=== PATIENT | female | born 1940 | race African-American/Black ===

== ENCOUNTER 2016-07-03 15:14 | Inpatient (IN) | payer OTHER ==
--- NOTE | ~2016-07-03 | HP ---
History And Physical [facility] [address] [place]. [address] NAME: YEHUDA JACOBO : 38 STATUS : ADM Sidney PAT#: [id number] AGE: 76 ADM/REG DATE : 07/03/16 MR#: [id number] REPORT SERV DATE: 07/04/16 DICTATED BY: JUAN JOSE CHUNG DATE: 07/03/16 REPORT STATUS : Draft TRANSCRIBED BY: MODL DATE: 07/03/16 DATE OF ADMISSION: 07/03/2016 CHIEF COMPLAINT: Right-sided chest pain and shortness of breath. HISTORY OF PRESENT ILLNESS: This is a 76-year-old female with a history of hypertension who presents to the emergency room at [facility] with the above-mentioned complaint. History is obtained from the patient and her brother, who is at bedside, along with reviewing data available on the [employer] system here. According to available data, Ms Jacobo, has been having progressive dyspnea and generalized weakness for about a week now. However, in the last two days or so, she has developed intense right-sided chest pain which is pleuritic in nature, aggravated with deep inspiration or coughing. This continued to the point where she had pain at rest even. She has also developed nonproductive cough without any hemoptysis in the last two days. They finally decided to come to the emergency room to be evaluated. According to the brother, she stays mostly in bed almost all day and just does not want to get around. They had one trip recently about a week or 10 days ago when they went to [facility]. Since her return, she has continued to stay in bed for no apparent reason. Unfortunately, she continues to smoke as well. In the emergency room, initial workup revealed a chest x-ray showing a right lower lobe atelectasis with mild leukocytosis. EKG showed sinus tachycardia and CTA of the chest was ordered. The CTA showed extensive bilateral pulmonary emboli and Hospitalist Service is asked to admit her for further evaluation and treatment. At the time of my evaluation, she has continued to have this pleuritic chest pain. She was otherwise in no distress. She denied palpitations or orthopnea. She did have a cough which was nonproductive, not associated with hemoptysis, night sweats, or weight loss. She has not had any recent falls or loss of consciousness. No history of recent fevers, chills, nausea, vomiting, diarrhea, or dysuria. No history of any recent hematemesis, hematochezia, or hematuria. No other history of recent travel or exposures. She has not had any stroke- like symptoms in the last five years. She has not had any GI bleeds recently. SOCIAL HISTORY: She has more than 50-pack year history of smoking, continues to do so. She takes an occasional alcoholic drink. She denies any recreational drug use. She used to be a social media community manager by profession. FAMILY HISTORY: Noncontributory. MEDICATIONS: At home were reviewed by me in the chart today and reordered by me. REVIEW OF SYSTEMS: As in history of present illness. All others systems were reviewed in detail and are quite unremarkable. History And Physical [address] [address] NAME: YEHUDA JACOBO : 39 STATUS : ADM Sidney PAT#: [id number] AGE: 76 ADM/REG DATE : 07/03/16 MR#: [id number] REPORT SERV DATE: 07/04/16 DICTATED BY: JUAN JOSE CHUNG DATE: 07/03/16 REPORT STATUS : Draft TRANSCRIBED BY: IKER DATE: 07/03/16 PHYSICAL EXAMINATION: GENERAL: This is a pleasant 76-year-old, not in any acute distress. HEENT: Her head is atraumatic, normocephalic. She is alert, awake, and oriented to time, place, and person. Her pupils are equal, reacting to light and accommodating. External ocular muscles are intact. Membranes are moist and pink. Sclerae are nonicteric. NECK: Supple with no jugular venous distention, lymphadenopathy, or thyromegaly. LUNGS: Auscultation of her lungs revealed decreased air entry bilaterally, but without any expiratory wheezes or rales. HEART: Auscultation of her heart revealed normal rate and rhythm with no murmurs, rubs, or gallops appreciated. ABDOMEN: Soft, nontender. Bowel sounds are present. EXTREMITIES: Showed no cyanosis, clubbing, or edema. NEUROLOGIC: Grossly intact. No focal sensory or motor deficits. Higher functions appeared intact. Gait was not examined. VITAL SIGNS: Her temperature today was 97 degrees Fahrenheit, heart rate was 122 upon arrival, respirations were 24, and blood pressure upon arrival was 101/63. At the time of my exam, it was 130/66. Oxygen saturations were 93% on 3 L upon arrival here. LABORATORY DATA: Reviewed on the [employer] system showed a normal CMP with a blood glucose of 124. Troponin was 0.02. Lactate was 0.9. CBC showed a white blood cell count of 12,400, hemoglobin was 14.8, hematocrit 43, and platelet count was 230,000. Her prothrombin time was 15.2 with an INR of 1.2 today. Influenza A and B were negative. Films of the CTA of the chest were reviewed by me on the PACS today and interpreted by me. Per my interpretation, there is acute extensive bilateral pulmonary emboli with right-sided pulmonary infarction as well. A 12-lead EKG done in the emergency room was reviewed and interpreted by me. There is sinus tachycardia. IMPRESSION: 1. Right-sided chest pain. 2. Acute pulmonary embolism. 3. Essential hypertension. 4. Sinus tachycardia. 5. Tobacco use. PLAN: 1. We will admit Ms Jacobo to the Hospitalist Service with telemetry for a 24-hour observation period. We will start her on Lovenox subcutaneously 1 mg/kg dose and transition to oral therapy in the morning. Meanwhile, we will keep her in bedrest and start her on pain control as well. We will maximize her bronchodilator treatments, continue supplemental oxygen therapy at this time. 2. We will also start her on IV fluids for volume resuscitation. Check chemistry and CBC in the morning. We will also obtain cultures and start her on empiric IV antibiotics for now. Check her lactate and procalcitonin levels, and if negative, we will consider discontinuing the antibiotics. We will continue all other home medications and History And Physical [address] [address] NAME: YEHUDA JACOBO : 38 STATUS : ADM Sidney PAT#: [id number] AGE: 76 ADM/REG DATE : 07/03/16 MR#: [id number] REPORT SERV DATE: 07/04/16 DICTATED BY: JUAN JOSE CHUNG DATE: 07/03/16 REPORT STATUS : Draft TRANSCRIBED BY: MODL DATE: 04/19/17 treatments at this time as well. I have discussed the above plans with the patient and her brother questions were answered. They are agreeable to the above recommendations. 3. Hospitalist Service will be following her during her stay here. /IKER Juan Jose Chung M.D. / [id number] CC: Ramírez Sargent Jr, MD Oana L. Andreescu, M.D.
--- NOTE | ~2016-07-03 | DS ---
Discharge Summary [facility] [id number] [place]. [address] NAME: YEHUDA JACOBO : 39 STATUS : DIS IN PAT#: [id number] AGE: 76 ADM/REG DATE : 07/03/16 MR#: [id number] REPORT SERV DATE: 07/13/16 DICTATED BY: ALEX ENCISO DATE: 07/12/16 REPORT STATUS : Draft TRANSCRIBED BY: MODL DATE: 07/12/16 ADMISSION DATE: 07/03/2016 DISCHARGE DATE: 07/12/2016 This dictation is an addition to discharge summary dictated by me on 07/11/2016. The patient was scheduled to be discharged on 07/10/2016; however, Insurance approval could not be obtained for the patient to be discharged to rehab facility as recommended by Physical Therapy. Insurance approval has been approved, bed is available for the patient in [facility]. The patient will therefore be discharged today. All other information on discharge summary remains the same. AKOSUA/IKER Alex Enciso MD / [id number] CC: MD Mellissa Austin M.D.
--- NOTE | ~2016-07-03 | DS ---
Discharge Summary [facility] [address] [place]. [address] NAME: YEHUDA JACOBO : 38 STATUS : ADM IN [facility]#: [id number] AGE: 76 ADM/REG DATE : 07/03/16 MR#: [id number] REPORT SERV DATE: 07/11/16 DICTATED BY: ALEX ENCISO DATE: 07/10/16 REPORT STATUS : Draft TRANSCRIBED BY: MODL DATE: 07/10/16 ADMISSION DATE: 07/03/2016 DISCHARGE DATE: ADDENDUM: This dictation is in addition to interim discharge summary dictated by Dr. Estrella on 07/09/2016. I assumed care of the patient 07/09/2016. At the time of my assumption of care, the patient was hemodynamically stable but still had some mild increased work of breathing. The patient was monitored again in the hospital setting, she has remained hemodynamically stable. BENNETT was ordered to evaluate the effect of PE on her cardiovascular function. BENNETT came back normal. The patient has remained hemodynamically stable. The patient also has been observed off oxygen, and the patient is saturating appropriately with no increased work of breathing. Given her hemodynamic stability, the patient will be discharged home to follow up with her primary care physician in five to seven days. Plan has been discussed with the patient who voices understanding and is agreeable with this plan. DISCHARGE DIAGNOSES: 1. Acute hypoxic respiratory failure. 2. Bilateral pulmonary embolism. 3. Hypertension. 4. Tobacco abuse. DISCHARGE EXAM: VITAL SIGNS: Blood pressure 131/60 with a pulse of 93, respirations 18, O2 saturation 94% on room air. GENERAL: The patient lying in bed, appears stated age, in no acute distress. HEENT: Normocephalic, atraumatic. Extraocular motors intact. Moist oral mucosa. Pupils are round and reactive to light and accommodation. NECK: Trachea midline and symmetric. No JVD noted. No thyromegaly present. LUNGS: Clear to auscultation bilaterally. No added breath sounds. CHEST: Nontender to palpation. CARDIOVASCULAR: Regular rate and rhythm, S1, S2. No murmurs, rubs, or gallops. ABDOMEN: Positive bowel sounds. Nontender. Nondistended. No organomegaly noted. No masses palpated. EXTREMITIES: No cyanosis, no clubbing, no edema. NEUROLOGIC: Alert and oriented x3. No focal deficits appreciated. DISCHARGE MEDICATIONS: 1. Lotensin HCT 12/26.5 one tab p.o. daily. 2. Gabapentin 300 mg p.o. at bedtime. 3. Hydrochlorothiazide 25 mg p.o. daily. 4. Nicotine transdermal patch 21 mg topically daily. 5. Xarelto 15 mg p.o. daily p.o. twice a day. 6. Colcrys 0.6 mg p.o. daily. IMAGING: CT brain without contrast impression: Discharge Summary [address] [place]. [address] NAME: YEHUDA JACOBO : 39 STATUS : ADM IN PAT#: [id number] AGE: 76 ADM/REG DATE : 07/03/16 MR#: [id number] REPORT SERV DATE: 07/11/16 DICTATED BY: ALEX ENCISO DATE: 07/10/16 REPORT STATUS : Draft TRANSCRIBED BY: IKER DATE: 07/10/16 1. No acute infarct or hemorrhage. 2. Moderate atrophy and chronic white matter gliosis. CT/CTA chest impression: Moderate heavy burden, bilateral multifocal incompletely obstructing lobar and subsegmental pulmonary artery pulmonary embolism in the bilateral upper and lower lobes most extensive in the right middle lobe and right lower lobe. For further details, please refer to the CTA on 07/03/2016. Transthoracic echo summary; normal left ventricular size and systolic function. Estimated ejection fraction 60%. Mild concentric LVH. Mild diastolic dysfunction. No regional wall motion abnormalities are identified. Normal right ventricular size and systolic function. Normal left atrial size. Aortic valve sclerosis without stenosis. DISPOSITION: The patient will be discharged home. FOLLOWUP: Follow up with primary care physician in five to ten days. ACTIVITY: As tolerated. PATIENT EDUCATION: The patient has been counseled against tobacco use. The patient is agreeable and given her willingness to quit smoking, transdermal patch was ordered. Activity as tolerated. DIET: Regular. Greater than 30 minutes was spent coordinating discharge, dictation of note, medication reconciliation, and providing counseling. LILIYA Alex Enciso MD / [id number] CC: MD Mellissa Austin M.D.
--- NOTE | ~2016-07-03 | IDS ---
Interim Discharge Summary [facility] [address] [place]. [address] NAME: YEHUDA JACOBO : 38 STATUS : ADM IN [facility]#: [id number] AGE: 76 ADM/REG DATE : 07/03/16 MR#: [id number] REPORT SERV DATE: 07/09/16 DICTATED BY: WILFRIDO HATCH DATE: 07/08/16 REPORT STATUS : Draft TRANSCRIBED BY: MODSukdheep DATE: 07/08/16 ADMISSION DATE: 07/03/2016 DISCHARGE DATE: DATE OF INTERIM DISCHARGE: 07/08/2016. PROCEDURES DONE: 1. 07/03/2016, chest x-ray: Right basilar linear opacity suggesting atelectasis, possibly due to poor inspiratory effort. 2. 07/03/2016, CT angiogram of chest: Moderate heavy burden of bilateral multifocal incompletely obstructing lobar and segmental pulmonary emboli, in the bilateral upper and lower lobes, most extensive in the right middle lobe and right lower lobe. Infiltrate, right middle lobe, may represent atelectasis or sequelae of pulmonary infarct. Subsegmental atelectasis, posterior right lung base. Cardiomegaly and moderate dense coronary artery calcifications. Enlarged main pulmonary artery measuring 3.2 diameter, consistent with CT evidence of pulmonary arterial hypertension. 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 Old calcified granulomatous disease. 3. 07/07/2016, CT of the head without contrast: No acute infarct or hemorrhage. Moderate atrophy and chronic white matter gliosis. REASON FOR ADMISSION: Right-sided chest pain and shortness of breath. HISTORY OF HOSPITAL STAY: A 76-year-old black female, past medical history of hypertension, presented with right-sided pain and shortness of breath. The patient had a CT angiogram of the chest at the time of presentation. The patient ended up having a right middle lobe pneumonia in conjunction with moderately heavy pulmonary embolus on the bilateral upper lobe and lower lobe with extensive PE in the right middle lobe and lower lobe. The patient was started on Xarelto. The patient initially was started on Lovenox for anticoagulation, but subsequently been switched to Xarelto. Unfortunately, the patient is also being treated for pneumonia. The patient had pretty high requirement of oxygen at the time of presentation. The patient was requiring 6 L of oxygen, but had subsequently been trending down to 3 L. More importantly, we will have PT evaluation to determine if the patient can be mobilized and hopefully wean down the oxygen. Questionable if the patient will need rehab versus home health with rehab. DIAGNOSES ON DISCHARGE: 1. Right-sided chest pain secondary to pulmonary embolism versus pneumonia. Continue the patient on Rocephin and Zithromax for pneumonia. In addition, continue the patient's Xarelto for anticoagulation. 2. Bilateral upper lobe and lower lobe pulmonary embolism with extensive pulmonary embolism in the right middle lobe and lower lobe. Continue Xarelto. This will make compliance much easier for the patient. The patient has been agreeable to afford the medication. With the patient's current insurance, the patient will have a cost of 42 dollars per month. 3. Hypertension. Continue the benazepril. Interim Discharge Summary [address] [address] NAME: YEHUDA JACOBO : 38 STATUS : ADM IN [facility]#: [id number] AGE: 76 ADM/REG DATE : 07/03/16 MR#: [id number] REPORT SERV DATE: 07/09/16 DICTATED BY: WILFRIDO HATCH. DATE: 07/08/16 REPORT STATUS : Draft TRANSCRIBED BY: IKER DATE: 07/08/16 4. Tobacco abuse. The patient has been doing well with nicotine patch. Recommend to encourage the patient using nicotine for smoking cessation. 5. Right middle lobe pneumonia. Continue the patient on Rocephin and Zithromax. FBDarling/MODL Wilfrido Hatch MD / [id number] CC: MD Mellissa Leon M.D.
[2016-07-03 15:04] LABS: BASOPHILS 0.2 %; BASOPHILS ABSOLUTE 0.02 10/3/uL (0.0-0.16); EOSINOPHILS 0 %; HEMOGLOBIN 14.8 g/dL (12.0-16.0); IMMATURE GRANULOCYTES 0.3 %; IMMATURE GRANULOCYTES ABSOLUTE 0.04 10/3/uL (0.0-0.11); LYMPHOCYTES 11.9 %; LYMPHOCYTES ABSOLUTE 1.48 10/3/uL (0.67-4.30); MEAN CORPUSCULAR HEMOGLOB 30.6 pg (26.0-34.0); MEAN PLATELET VOLUME 9.6 fL (9.2-13.0); MONOCYTES 13.2 %; MONOCYTES ABSOLUTE 1.64 10/3/uL (0.21-1.20); NEUTROPHILS 74.4 %; NEUTROPHILS ABSOLUTE 9.23 10/3/uL (2.02-8.40); RBC DISTRIBUTION WIDTH 16.3 % (12.0-16.0); RED CELL COUNT 4.83 10/6/uL (4.0-5.6)
[2016-07-03 15:07] LABS: MANUAL DIFF NO %; MEAN CORPUS HGB CONC 34.4 g/dL (32.0-36.0); PLATELET COUNT 230 10/3/uL (150-400); WHITE BLOOD CELLS 12.4 10/3/uL (4.5-10.5)
[2016-07-03 15:16] LABS: INTERNATIONAL NORMAL RATI 1.2 UNITS (-); PROTIME (NOT ORD) 15.2 SEC (12.0-14.5)
[2016-07-03 15:17] LABS: PARTIAL THROMBO TIME 32.7 SEC (22.5-37.2)
[2016-07-03 15:23] LABS: BUN (BLOOD UREA NITROGEN) 18 MG/DL (6-23); CALCIUM, SERUM 10.7 MG/DL (8.5-10.4); CHEST PAIN PROFILE TAT 0 Hrs 22 Mins; CHLORIDE, SERUM 101 MMOL/L (96-112); CO2 (CARBON DIOXIDE) 23 MMOL/L (24-34); CREATININE 1.01 MG/DL (0.55-1.02); GFR AFRICAN AMERICAN 62 ML/MIN (>=60); GFR NON AFRICAN AMERICAN 54 ML/MIN (>=60); GLUCOSE, SERUM 124 MG/DL (60-99); POTASSIUM, SERUM 3.6 MMOL/L (3.5-5.3); SODIUM, SERUM 135 MMOL/L (135-148); TROPONIN I <0.02 NG/ML (<0.05)
[2016-07-03 17:17] LABS: INFLUENZA A SCREEN NEGATIVE (NEGATIVE); INFLUENZA B SCREEN NEGATIVE (NEGATIVE)
[2016-07-03] MEDS ORDERED: COLCRYS0.6 MG PO (18:07)
[2016-07-03] MEDS ORDERED: HYDROCHLOROT25 MG PO (18:08)
[2016-07-03] MEDS ORDERED: NEUR300 PO (18:08)
[2016-07-03] MEDS ORDERED: LOTENSIN HCT1 TA1 PO (18:08)
[2016-07-04 06:02] LABS: BASOPHILS 0.1 %; BASOPHILS ABSOLUTE 0.01 10/3/uL (0.0-0.16); EOSINOPHILS 0 %; HEMATOCRIT 41.7 % (36.0-48.0); HEMOGLOBIN 14.1 g/dL (12.0-16.0); IMMATURE GRANULOCYTES 0.3 %; IMMATURE GRANULOCYTES ABSOLUTE 0.04 10/3/uL (0.0-0.11); LYMPHOCYTES 10.9 %; LYMPHOCYTES ABSOLUTE 1.44 10/3/uL (0.67-4.30); MEAN CORPUS HGB CONC 33.8 g/dL (32.0-36.0); MEAN CORPUSCULAR HEMOGLOB 30.7 pg (26.0-34.0); MEAN CORPUSCULAR VOLUME 90.7 fL (80-100); MEAN PLATELET VOLUME 9.7 fL (9.2-13.0); MONOCYTES 10.9 %; MONOCYTES ABSOLUTE 1.44 10/3/uL (0.21-1.20); NEUTROPHILS 77.8 %; NEUTROPHILS ABSOLUTE 10.24 10/3/uL (2.02-8.40); PLATELET COUNT 227 10/3/uL (150-400); RBC DISTRIBUTION WIDTH 16.2 % (12.0-16.0); WHITE BLOOD CELLS 13.2 10/3/uL (4.5-10.5)
[2016-07-04 06:12] LABS: MANUAL DIFF NO %
[2016-07-04 06:14] LABS: BUN (BLOOD UREA NITROGEN) 19 MG/DL (6-23); CALCIUM, SERUM 9.9 MG/DL (8.5-10.4); CHLORIDE, SERUM 102 MMOL/L (96-112); CO2 (CARBON DIOXIDE) 23 MMOL/L (24-34); CREATININE 1.09 MG/DL (0.55-1.02); GFR AFRICAN AMERICAN 57 ML/MIN (>=60); GFR NON AFRICAN AMERICAN 49 ML/MIN (>=60); GLUCOSE, SERUM 121 MG/DL (60-99); PHOSPHORUS, SERUM 3.2 MG/DL (2.5-4.5); POTASSIUM, SERUM 4.2 MMOL/L (3.5-5.3); SODIUM, SERUM 136 MMOL/L (135-148)
[2016-07-05 03:26] LABS: BASOPHILS 0.1 %; BASOPHILS ABSOLUTE 0.01 10/3/uL (0.0-0.16); EOSINOPHILS 0.2 %; EOSINOPHILS ABSOLUTE 0.03 10/3/uL (0.0-0.53); HEMATOCRIT 39.9 % (36.0-48.0); HEMOGLOBIN 13.4 g/dL (12.0-16.0); IMMATURE GRANULOCYTES 0.3 %; IMMATURE GRANULOCYTES ABSOLUTE 0.04 10/3/uL (0.0-0.11); LYMPHOCYTES 12.2 %; LYMPHOCYTES ABSOLUTE 1.62 10/3/uL (0.67-4.30); MEAN CORPUS HGB CONC 33.6 g/dL (32.0-36.0); MEAN CORPUSCULAR VOLUME 92.4 fL (80-100); MEAN PLATELET VOLUME 10.1 fL (9.2-13.0); MONOCYTES 12.5 %; MONOCYTES ABSOLUTE 1.65 10/3/uL (0.21-1.20); NEUTROPHILS 74.7 %; NEUTROPHILS ABSOLUTE 9.88 10/3/uL (2.02-8.40); PLATELET COUNT 215 10/3/uL (150-400); RBC DISTRIBUTION WIDTH 16.2 % (12.0-16.0); RED CELL COUNT 4.32 10/6/uL (4.0-5.6); WHITE BLOOD CELLS 13.2 10/3/uL (4.5-10.5)
[2016-07-05 03:27] LABS: MANUAL DIFF NO %
[2016-07-05 03:44] LABS: A/G RATIO 0.5 (0.7-1.9); ALBUMIN 2.5 G/DL (3.5-5.0); ALKALINE PHOSPHATASE 71 U/L (45-117); BUN (BLOOD UREA NITROGEN) 23 MG/DL (6-23); CALCIUM, SERUM 8.7 MG/DL (8.5-10.4); CHLORIDE, SERUM 103 MMOL/L (96-112); CO2 (CARBON DIOXIDE) 24 MMOL/L (24-34); CREATININE 1.11 MG/DL (0.55-1.02); GFR AFRICAN AMERICAN 55 ML/MIN (>=60); GFR NON AFRICAN AMERICAN 48 ML/MIN (>=60); GLOBULIN 4.6 G/DL (2.5-4.1); GLUCOSE, SERUM 101 MG/DL (60-99); PHOSPHORUS, SERUM 2.8 MG/DL (2.5-4.5); SGOT(AST) 14 U/L (5-40); SGPT(ALT) 11 U/L (5-65); SODIUM, SERUM 139 MMOL/L (135-148); TOTAL BILIRUBIN 0.3 MG/DL (0-1.2); TOTAL PROTEIN 7.1 G/DL (6.0-8.5); TROPONIN I <0.02 NG/ML (<0.05)
[2016-07-06 04:36] LABS: A/G RATIO 0.5 (0.7-1.9); ALBUMIN 2.5 G/DL (3.5-5.0); ALKALINE PHOSPHATASE 80 U/L (45-117); BUN (BLOOD UREA NITROGEN) 25 MG/DL (6-23); CALCIUM, SERUM 9.6 MG/DL (8.5-10.4); CHLORIDE, SERUM 99 MMOL/L (96-112); CREATININE 1.09 MG/DL (0.55-1.02); GFR AFRICAN AMERICAN 57 ML/MIN (>=60); GFR NON AFRICAN AMERICAN 49 ML/MIN (>=60); PHOSPHORUS, SERUM 3.2 MG/DL (2.5-4.5); POTASSIUM, SERUM 3.7 MMOL/L (3.5-5.3); SGOT(AST) 18 U/L (5-40); SGPT(ALT) 16 U/L (5-65); SODIUM, SERUM 137 MMOL/L (135-148); TOTAL BILIRUBIN 0.5 MG/DL (0-1.2); TOTAL PROTEIN 7.5 G/DL (6.0-8.5)
[2016-07-06 04:42] LABS: CO2 (CARBON DIOXIDE) 29 MMOL/L (24-34); GLUCOSE, SERUM 139 MG/DL (60-99)
[2016-07-06 04:49] LABS: BASOPHILS 0.1 %; BASOPHILS ABSOLUTE 0.01 10/3/uL (0.0-0.16); EOSINOPHILS 0 %; HEMATOCRIT 42.4 % (36.0-48.0); HEMOGLOBIN 14.4 g/dL (12.0-16.0); IMMATURE GRANULOCYTES 0.3 %; IMMATURE GRANULOCYTES ABSOLUTE 0.03 10/3/uL (0.0-0.11); LYMPHOCYTES 6.8 %; LYMPHOCYTES ABSOLUTE 0.69 10/3/uL (0.67-4.30); MANUAL DIFF NO %; MEAN CORPUSCULAR HEMOGLOB 30.8 pg (26.0-34.0); MEAN CORPUSCULAR VOLUME 90.6 fL (80-100); MEAN PLATELET VOLUME 10.6 fL (9.2-13.0); MONOCYTES 7.7 %; MONOCYTES ABSOLUTE 0.78 10/3/uL (0.21-1.20); NEUTROPHILS 85.1 %; NEUTROPHILS ABSOLUTE 8.61 10/3/uL (2.02-8.40); PLATELET COUNT 333 10/3/uL (150-400); RBC DISTRIBUTION WIDTH 16.2 % (12.0-16.0); RED CELL COUNT 4.68 10/6/uL (4.0-5.6); WHITE BLOOD CELLS 10.1 10/3/uL (4.5-10.5)
[2016-07-06 20:52] LABS: ALLENS TEST Pos; CARBOXYHEMOGLOBIN 0.2 % (0-3); DEVICE NC; HCO3 (ACTUAL BICARBONATE) 33.8 MEQ/L (23-27); HEMOBLOGIN CONTENT 14.5 G/DL (12-16); INSTRUMENT SERIAL # 35151; METHEMOGLOBIN 0.6 % (0-3); O2 CONTENT 19.2 VOL% (18-24); OPERATOR ID 17370; PCO2 (CO2 TENSION) 42 MMHG (35-45); PO2 (O2 TENSION) 75 MMHG (79-93); SAMPLE Arterial; pH 7.52 (7.37-7.43)
[2016-07-07 06:18] LABS: BASOPHILS 0.1 %; BASOPHILS ABSOLUTE 0.01 10/3/uL (0.0-0.16); EOSINOPHILS 0.5 %; EOSINOPHILS ABSOLUTE 0.04 10/3/uL (0.0-0.53); HEMOGLOBIN 12.7 g/dL (12.0-16.0); IMMATURE GRANULOCYTES 0.2 %; IMMATURE GRANULOCYTES ABSOLUTE 0.02 10/3/uL (0.0-0.11); LYMPHOCYTES ABSOLUTE 1.19 10/3/uL (0.67-4.30); MEAN CORPUS HGB CONC 34.2 g/dL (32.0-36.0); MEAN CORPUSCULAR HEMOGLOB 30.7 pg (26.0-34.0); MEAN CORPUSCULAR VOLUME 89.6 fL (80-100); MEAN PLATELET VOLUME 9.8 fL (9.2-13.0); MONOCYTES 13.3 %; MONOCYTES ABSOLUTE 1.13 10/3/uL (0.21-1.20); NEUTROPHILS 71.9 %; NEUTROPHILS ABSOLUTE 6.11 10/3/uL (2.02-8.40); PLATELET COUNT 339 10/3/uL (150-400); RBC DISTRIBUTION WIDTH 16.3 % (12.0-16.0); RED CELL COUNT 4.14 10/6/uL (4.0-5.6); WHITE BLOOD CELLS 8.5 10/3/uL (4.5-10.5)
[2016-07-07 06:19] LABS: HEMATOCRIT 37.1 % (36.0-48.0); MANUAL DIFF NO %
[2016-07-07 06:33] LABS: ALBUMIN 2.3 G/DL (3.5-5.0); BUN (BLOOD UREA NITROGEN) 26 MG/DL (6-23); CALCIUM, SERUM 9.5 MG/DL (8.5-10.4); CHLORIDE, SERUM 99 MMOL/L (96-112); CO2 (CARBON DIOXIDE) 27 MMOL/L (24-34); CREATININE 1.02 MG/DL (0.55-1.02); GFR AFRICAN AMERICAN 61 ML/MIN (>=60); GFR NON AFRICAN AMERICAN 53 ML/MIN (>=60); GLUCOSE, SERUM 117 MG/DL (60-99); PHOSPHORUS, SERUM 2.5 MG/DL (2.5-4.5); POTASSIUM, SERUM 3.3 MMOL/L (3.5-5.3); SODIUM, SERUM 136 MMOL/L (135-148)
[2016-07-07 06:38] LABS: ASCORBIC ACID (UR NOT ORDER) NEG (NEG); BILIRUBIN, URINE NEGATIVE (NEG); KETONE, URINE NEGATIVE (NEG); LEUKOCYTE ESTERASE(NOT OR NEG (NEG); WBC (NOT ORDERED) (RFLEX) 1 (0-5)
[2016-07-08 06:57] LABS: BASOPHILS 0.3 %; BASOPHILS ABSOLUTE 0.02 10/3/uL (0.0-0.16); EOSINOPHILS 1.9 %; EOSINOPHILS ABSOLUTE 0.15 10/3/uL (0.0-0.53); HEMATOCRIT 36.8 % (36.0-48.0); HEMOGLOBIN 12.1 g/dL (12.0-16.0); IMMATURE GRANULOCYTES 0.4 %; IMMATURE GRANULOCYTES ABSOLUTE 0.03 10/3/uL (0.0-0.11); LYMPHOCYTES 22.3 %; LYMPHOCYTES ABSOLUTE 1.73 10/3/uL (0.67-4.30); MEAN CORPUS HGB CONC 32.9 g/dL (32.0-36.0); MEAN CORPUSCULAR HEMOGLOB 30.2 pg (26.0-34.0); MEAN CORPUSCULAR VOLUME 91.8 fL (80-100); MEAN PLATELET VOLUME 9.7 fL (9.2-13.0); MONOCYTES 9.3 %; MONOCYTES ABSOLUTE 0.72 10/3/uL (0.21-1.20); NEUTROPHILS 65.8 %; PLATELET COUNT 342 10/3/uL (150-400); RBC DISTRIBUTION WIDTH 15.9 % (12.0-16.0); RED CELL COUNT 4.01 10/6/uL (4.0-5.6); WHITE BLOOD CELLS 7.8 10/3/uL (4.5-10.5)
[2016-07-08 06:58] LABS: MANUAL DIFF NO %
[2016-07-08 07:12] LABS: A/G RATIO 0.5 (0.7-1.9); ALBUMIN 2.3 G/DL (3.5-5.0); ALKALINE PHOSPHATASE 77 U/L (45-117); BUN (BLOOD UREA NITROGEN) 23 MG/DL (6-23); CALCIUM, SERUM 9.7 MG/DL (8.5-10.4); CHLORIDE, SERUM 104 MMOL/L (96-112); CO2 (CARBON DIOXIDE) 30 MMOL/L (24-34); GFR AFRICAN AMERICAN 63 ML/MIN (>=60); GFR NON AFRICAN AMERICAN 54 ML/MIN (>=60); GLOBULIN 4.3 G/DL (2.5-4.1); GLUCOSE, SERUM 90 MG/DL (60-99); PHOSPHORUS, SERUM 2.1 MG/DL (2.5-4.5); POTASSIUM, SERUM 3.6 MMOL/L (3.5-5.3); SGOT(AST) 39 U/L (5-40); SGPT(ALT) 31 U/L (5-65); SODIUM, SERUM 140 MMOL/L (135-148); TOTAL BILIRUBIN 0.2 MG/DL (0-1.2); TOTAL PROTEIN 6.6 G/DL (6.0-8.5)
[2016-07-09 06:56] LABS: BASOPHILS 0.4 %; BASOPHILS ABSOLUTE 0.03 10/3/uL (0.0-0.16); EOSINOPHILS ABSOLUTE 0.16 10/3/uL (0.0-0.53); HEMATOCRIT 38.5 % (36.0-48.0); HEMOGLOBIN 12.6 g/dL (12.0-16.0); IMMATURE GRANULOCYTES 0.2 %; IMMATURE GRANULOCYTES ABSOLUTE 0.02 10/3/uL (0.0-0.11); LYMPHOCYTES 24.4 %; LYMPHOCYTES ABSOLUTE 1.98 10/3/uL (0.67-4.30); MANUAL DIFF NO %; MEAN CORPUS HGB CONC 32.7 g/dL (32.0-36.0); MEAN CORPUSCULAR HEMOGLOB 29.9 pg (26.0-34.0); MEAN CORPUSCULAR VOLUME 91.2 fL (80-100); MEAN PLATELET VOLUME 9.3 fL (9.2-13.0); MONOCYTES ABSOLUTE 0.81 10/3/uL (0.21-1.20); NEUTROPHILS ABSOLUTE 5.12 10/3/uL (2.02-8.40); PLATELET COUNT 372 10/3/uL (150-400); RBC DISTRIBUTION WIDTH 15.7 % (12.0-16.0); RED CELL COUNT 4.22 10/6/uL (4.0-5.6); WHITE BLOOD CELLS 8.1 10/3/uL (4.5-10.5)
[2016-07-09 07:14] LABS: BUN (BLOOD UREA NITROGEN) 20 MG/DL (6-23); CALCIUM, SERUM 10.1 MG/DL (8.5-10.4); CHLORIDE, SERUM 101 MMOL/L (96-112); CO2 (CARBON DIOXIDE) 30 MMOL/L (24-34); CREATININE 0.93 MG/DL (0.55-1.02); GFR AFRICAN AMERICAN 69 ML/MIN (>=60); GFR NON AFRICAN AMERICAN 59 ML/MIN (>=60); GLUCOSE, SERUM 96 MG/DL (60-99); PHOSPHORUS, SERUM 2.5 MG/DL (2.5-4.5); POTASSIUM, SERUM 3.8 MMOL/L (3.5-5.3); SGOT(AST) 54 U/L (5-40); SGPT(ALT) 51 U/L (5-65); SODIUM, SERUM 137 MMOL/L (135-148); TOTAL BILIRUBIN 0.2 MG/DL (0-1.2); TOTAL PROTEIN 7.1 G/DL (6.0-8.5)
[2016-07-09 07:15] LABS: A/G RATIO 0.7 (0.7-1.9); ALBUMIN 2.8 G/DL (3.5-5.0); ALKALINE PHOSPHATASE 90 U/L (45-117); GLOBULIN 4.3 G/DL (2.5-4.1)
[2016-07-10 08:59] LABS: BASOPHILS 0.6 %; BASOPHILS ABSOLUTE 0.06 10/3/uL (0.0-0.16); EOSINOPHILS 1.1 %; EOSINOPHILS ABSOLUTE 0.11 10/3/uL (0.0-0.53); HEMATOCRIT 38.6 % (36.0-48.0); HEMOGLOBIN 12.8 g/dL (12.0-16.0); IMMATURE GRANULOCYTES 0.5 %; IMMATURE GRANULOCYTES ABSOLUTE 0.05 10/3/uL (0.0-0.11); LYMPHOCYTES 21.3 %; LYMPHOCYTES ABSOLUTE 2.22 10/3/uL (0.67-4.30); MANUAL DIFF NO %; MEAN CORPUS HGB CONC 33.2 g/dL (32.0-36.0); MEAN CORPUSCULAR VOLUME 90.4 fL (80-100); MEAN PLATELET VOLUME 9.5 fL (9.2-13.0); MONOCYTES ABSOLUTE 0.83 10/3/uL (0.21-1.20); NEUTROPHILS 68.5 %; NEUTROPHILS ABSOLUTE 7.13 10/3/uL (2.02-8.40); PLATELET COUNT 453 10/3/uL (150-400); RBC DISTRIBUTION WIDTH 15.7 % (12.0-16.0); RED CELL COUNT 4.27 10/6/uL (4.0-5.6); WHITE BLOOD CELLS 10.4 10/3/uL (4.5-10.5)
[2016-07-10 09:09] LABS: A/G RATIO 0.6 (0.7-1.9); ALBUMIN 2.7 G/DL (3.5-5.0); ALKALINE PHOSPHATASE 97 U/L (45-117); BUN (BLOOD UREA NITROGEN) 21 MG/DL (6-23); CALCIUM, SERUM 9.7 MG/DL (8.5-10.4); CHLORIDE, SERUM 102 MMOL/L (96-112); CO2 (CARBON DIOXIDE) 27 MMOL/L (24-34); GFR AFRICAN AMERICAN 63 ML/MIN (>=60); GFR NON AFRICAN AMERICAN 54 ML/MIN (>=60); GLOBULIN 4.5 G/DL (2.5-4.1); GLUCOSE, SERUM 104 MG/DL (60-99); POTASSIUM, SERUM 3.9 MMOL/L (3.5-5.3); SGOT(AST) 47 U/L (5-40); SGPT(ALT) 63 U/L (5-65); SODIUM, SERUM 136 MMOL/L (135-148); TOTAL BILIRUBIN 0.2 MG/DL (0-1.2); TOTAL PROTEIN 7.2 G/DL (6.0-8.5)
[2016-07-12 06:51] LABS: BASOPHILS 0.2 %; BASOPHILS ABSOLUTE 0.02 10/3/uL (0.0-0.16); EOSINOPHILS 1.1 %; EOSINOPHILS ABSOLUTE 0.09 10/3/uL (0.0-0.53); HEMATOCRIT 37.8 % (36.0-48.0); HEMOGLOBIN 12.5 g/dL (12.0-16.0); IMMATURE GRANULOCYTES 0.6 %; IMMATURE GRANULOCYTES ABSOLUTE 0.05 10/3/uL (0.0-0.11); LYMPHOCYTES 28.1 %; LYMPHOCYTES ABSOLUTE 2.39 10/3/uL (0.67-4.30); MEAN CORPUS HGB CONC 33.1 g/dL (32.0-36.0); MEAN CORPUSCULAR VOLUME 90.6 fL (80-100); MEAN PLATELET VOLUME 9.1 fL (9.2-13.0); MONOCYTES 9.9 %; MONOCYTES ABSOLUTE 0.84 10/3/uL (0.21-1.20); NEUTROPHILS 60.1 %; NEUTROPHILS ABSOLUTE 5.12 10/3/uL (2.02-8.40); PLATELET COUNT 468 10/3/uL (150-400); RED CELL COUNT 4.17 10/6/uL (4.0-5.6); WHITE BLOOD CELLS 8.5 10/3/uL (4.5-10.5)
[2016-07-12 06:53] LABS: A/G RATIO 0.6 (0.7-1.9); ALBUMIN 2.8 G/DL (3.5-5.0); CALCIUM, SERUM 9.6 MG/DL (8.5-10.4); CHLORIDE, SERUM 102 MMOL/L (96-112); CO2 (CARBON DIOXIDE) 26 MMOL/L (24-34); CREATININE 1.43 MG/DL (0.55-1.02); GFR AFRICAN AMERICAN 41 ML/MIN (>=60); GFR NON AFRICAN AMERICAN 35 ML/MIN (>=60); GLOBULIN 4.6 G/DL (2.5-4.1); GLUCOSE, SERUM 103 MG/DL (60-99); MANUAL DIFF NO %; POTASSIUM, SERUM 4.1 MMOL/L (3.5-5.3); SGOT(AST) 19 U/L (5-40); SGPT(ALT) 40 U/L (5-65); SODIUM, SERUM 136 MMOL/L (135-148); TOTAL BILIRUBIN 0.3 MG/DL (0-1.2); TOTAL PROTEIN 7.4 G/DL (6.0-8.5)
[2016-07-12 06:55] LABS: ALKALINE PHOSPHATASE 85 U/L (45-117); BUN (BLOOD UREA NITROGEN) 30 MG/DL (6-23)
== END 2016-07-12 16:43 | DRG 175 ==
LOC: ER 15:14 → CDU1 19:41 → 7NO 07-04 17:09
PROVIDERS: Emergency Medicine; Hospitalist; Internal Medicine Pulmonary Disease
DX: I26.99 Other pulmonary embolism without acute cor pulmonale (principal); J18.9 Pneumonia, unspecified organism; J96.01 Acute respiratory failure with hypoxia; I10 Essential (primary) hypertension; F17.210 Nicotine dependence, cigarettes, uncomplicated; R00.0 Tachycardia, unspecified
CPT/HCPCS: 36600; 70450; 71010; 71275; 80048; 80053; 80069; 81001; 82140; 82805; 83605; 83735; 84100; 84145; 84484; 85025; 85610; 85730; 87040; 87493; 87493-59; 87804; 93005; 93288; 94640; 96374; 96375; 97110-GP; 97116-GP; 97161-GP; 97165-GO; 99285; A9270-GY; C8929; J0456; J2405; J2550; Q9957; Q9967